=== PATIENT | female | born 1940 | race Caucasian/White ===

== ENCOUNTER 2023-06-14 07:59 | Inpatient (IN) ==
--- NOTE | 2023-06-08 11:53 | Anesthesiology Consultation ---
Date of Service June 08, 2023 Assessment & Plan Chart Review Chart Review: Acceptable Risk for Surgery and Patient NOT seen in Pre Admission Testing Consults Requested none History Surgery Operation Date: 06/14/23 07:00 Proposed Procedures p Right Breast Mastectomy, Excision Right Axillary Lymph Node with Localization (Christie Pulverizer Tender Scheduled 05/12/23) - Baldev Oreilly DO Height/Weight Height: 5 ft 1 in Weight: 49.895 kg Allergies Allergy/AdvReac Type Severity Reaction Status Date / Time aspirin Allergy Intermediate Headache Verified 06/08/23 08:07 chocolate flavor Allergy Intermediate Hives Verified 06/08/23 08:07 Medications Home Medications Medication Instructions Recorded Confirmed Last Taken atenolol 50 mg tablet 50 mg PO QAM 10/29/22 06/08/23 12/30/22 08:30 diltiazem HCl 240 mg 240 mg PO QAM 10/29/22 06/08/23 12/30/22 08:30 capsule,extended release 24 hr glipizide 5 mg tablet 5 mg PO QAM 10/29/22 06/08/23 12/29/22 08:00 simvastatin 10 mg tablet (Zocor) 10 mg PO QPM 11/09/22 06/08/23 12/29/22 17:00 ujwhecnw-avme-yzaz 8 mg-folic 400 1 tab PO QAM 11/16/22 06/08/23 12/29/22 08:00 mcg-K 50 mcg-lutein 300 mcg tablet (Centrum Silver Women) sodium chloride 1,000 mg soluble 1,000 mg PO BID 12/15/22 06/08/23 12/29/22 21:00 tablet cranberry extract 500 mg tablet 500 mg PO HS 04/02/23 06/08/23 Unknown omeprazole 20 mg capsule,delayed 20 mg PO QAM Heartburn 04/02/23 06/08/23 Unknown release metformin 500 mg tablet 500 mg PO BID 06/02/23 06/08/23 Unknown Past Medical History Medical History Pancreatic cancer dx 11/2022 Malignant neoplasm of overlapping sites of right female breast Myocardial infarction Type II LA 09/03/22 at [facility] (per cardio consult 09/04/22 "no EKG changes of ACS, mildly elevated troponin in the setting of sepsis secondary to UTI, I believe elevation of troponin is secondary to demand ischemia, type II LA"). Started on Plavix Poor historian Breast cancer, right treated with chemotherapy and radiation. Biopsy 10/16/22 CKD (chronic kidney disease) Stage III per records Thyroid nodule Hyponatremia PCP aware and monitoring- Na in low 120s Hyperlipemia Hypertension Diabetes NIDDM Past Family History Family History Mother , 66yo Stroke Hypertension Father , 80s Rupture of bowel Fall Brother COVID Diabetes Sister No problems noted. Son Diabetes Heart disease Cardiac stents; Daughter No problems noted. Daughter Diabetes Other No family history of adverse response to anesthesia Past Surgical History Surgical History H/O esophagogastroduodenoscopy With EUS and biopsy of pancreas - adenocarcinoma 12/30/20 History of ERCP Status post chemotherapy last treatment 05/21/23 Port-A-Cath in place (11/16/22) Access port placement. Dr. Randolph H/O: hysterectomy (~1989) 1989 Hx of colonoscopy 2010 Social History Smoking Status: Never smoker Do You Dip or Chew Tobacco: No Hx Alcohol Use: No Hx Substance Use: No substance use type: does not use Lab Results Anesthesia Preop Results Results Anesthesia Widget: WBC 8.52 K/ul (4.8-10.8) 05/21/23 Hgb 9.0 g/dl (12.0-16.0) L 05/21/23 Hct 27.3 % (37.0-47.0) L 05/21/23 Plt 283 K/uL (130-400) 05/21/23 Na 130 mmol/L (136-145) L 05/21/23 K 4.7 mmol/L (3.5-5.1) 05/21/23 Cl 97 mmol/L (98-107) L 05/21/23 CO2 22 mmol/L (21-32) 05/21/23 BUN 22 mg/dl (6-23) 05/21/23 Creat 1.22 mg/dl (0.6-1.2) H 05/21/23 Glucose Level 207 mg/dl (70-99(Fasting)) H 05/21/23 TSH 0.331 uIu/ml (0.300-4.500) 05/21/23 Testing Electrocardiogram Date: 09/09/22 NSR @ 77 bpm Low voltage QRS Septal infarct Echocardiogram Date: 04/12/23 LV systolic function is normal No regional wall motion abnormalities Borderline concentric LVH EF 60-65 Mild MR Compared with study of 03/09/23, no significant change
[~2023-06-14 07:59] MED LIST: ACETAMINOPHEN 1000 MG/100 ML IV IV ONE; LACTATED RINGER'S 1,000 ML IV SCH; LR 15ML/HR IV SCH; ceFAZolin 2000MG 2,000 MG/15 ML SYR IV SCH
[2023-06-14] MEDS ORDERED: ePHEDrine sulfate 50 MG/ML AMP IV PRN (09:27)
[2023-06-14] MEDS ORDERED: HYDROmorphone INJ 2 MG/ML SYR/VIAL IV PRN (09:27)
[2023-06-14] MEDS ORDERED: fentaNYL citrate PF 100 MCG/2 ML VIAL IV PRN (09:27)
[2023-06-14] MEDS ORDERED: ATROPINE SULFATE 0.1 MG/ML 10ML SYR IV PRN (09:27)
[2023-06-14] MEDS ORDERED: ONDANSETRON INJ 2 MG/ML 2 ML VIAL IV PRN ×2 (09:27→12:40)
[2023-06-14] MEDS ORDERED: LIDOCAINE 2% 2 ML VIAL/AMP(20MG/ML) INFIL ONE (09:45)
[2023-06-14] MEDS ORDERED: PROPOFOL IV EMULSION 10 MG/ML 20 ML VIAL IV ONE (09:45)
[2023-06-14] MEDS ORDERED: ROCURONIUM BROMIDE 10 MG/ML 5 ML VIAL IV ONE (09:45)
[2023-06-14] MEDS ORDERED: ONDANSETRON INJ 2 MG/ML 2 ML VIAL ONE ×2 (09:45→13:14)
[2023-06-14] MEDS ORDERED: DEXAMETHASONE SOD INJ 4 MG/ML VIAL ONE (09:45)
[2023-06-14] MEDS ORDERED: MIDAZOLAM HCL 1 MG/ML 2ML VIAL ONE (09:46)
[2023-06-14] MEDS ORDERED: fentaNYL citrate PF 100 MCG/2 ML VIAL ONE ×2 (09:46→12:48)
[2023-06-14] MEDS ORDERED: SODIUM CHLORIDE 0.9% PF INJ 10 ML VIAL ONE (11:01)
[2023-06-14] MEDS ORDERED: METHYLENE BLUE 0.5% 10 ML VIAL ONE (11:01)
[2023-06-14] MEDS ORDERED: BUPIVACAINE/EPINEPHRINE 0.5% MPF 1:200,000 30 ML VIAL ONE (11:01)
--- NOTE | 2023-06-14 11:14 | History & Physical Report ---
Date of Service June 14, 2023 Assessment & Plan (1) Breast cancer, right: Plan: Plan for a right mastectomy with targeted lymph node excision with hernan strike plate attacher localization. Consent is on the chart with appropriate signatures. History of Present Illness Primary Care Provider: SIDNEY Castillo Dorothea is a pleasant 82 y/o F currently under the care of medical oncology for management of an inflammatory right breast cancer as well as pancreatic carcinoma who presents to the office with her daughter, Nataliya, to discuss next surgical steps for her breast cancer treatment for which she is currently having neoadjuvant CTX. She really says that her last chemotherapy is planned for May 14. This is confirmed with radiation oncology notation which also i ndicates that she will begin radiation treatments on May 24 having her last treatment on June 02. She presents for right breast mastectomy with targeted lymph node excision to include a previously biopsied right axillary lymph node as well as bulky lymphadenopathy. Detailed HPI: 09/03/22: CT chest at [facility] revealed a right breast mass 10/09/22: b/l diagnostic mammogram- large 9cm mass of the right breast suspicious for malignancy. Mildly prominent right axillary lymph nodes suspicious for gissel mets 10/16/22: US guided biopsy of the right breast mass with clip placement and biopsy of the right axillary lymph node with clip placement. 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 11/26/22: PET CT-FDG avid right breast mass, the negative biopsied lymph node had mild FDG avid uptake and was indeterminate on PET. A 2.2cm FDG avid mass was noted within the pancreatic body which favored pancreatic carcinoma as opposed to pancreatic metastasis but this could not be totally excluded. Cystic nonenhancing FDG avid lesions in the pancreas and a few adjacent peripancreatic indeterminate cystic lesions with follow up exams recommended. 12/30/22: EUS-with biopsy of the pancreatic mass and aspiration of cysts. Final pathology revealed an adenocarcinoma of the lesion in the pancreatic body. Cystic lesion in the head of the pancreas confirms glandular epithelium with low grade atypia and some groups concerning for high grad atypia. GE junction biopsy negative for intestinal metaplasia and dysplasia. Allergies Allergy/AdvReac Type Severity Reaction Status Date / Time aspirin Allergy Intermediate Headache Verified 06/14/23 08:40 chocolate flavor Allergy Intermediate Hives Verified 06/14/23 08:40 Home Medications Medication Instructions Recorded Confirmed Type atenolol 50 mg tablet 50 mg PO QAM 10/29/22 06/14/23 History diltiazem HCl 240 mg 240 mg PO QAM 10/29/22 06/14/23 History capsule,extended release 24 hr glipizide 5 mg tablet 5 mg PO QAM 10/29/22 06/14/23 History simvastatin 10 mg tablet (Zocor) 10 mg PO QPM 11/09/22 06/14/23 History txbsepsk-bikd-ofxr 8 mg-folic 400 1 tab PO QAM 11/16/22 06/14/23 History mcg-K 50 mcg-lutein 300 mcg tablet (Centrum Silver Women) sodium chloride 1,000 mg soluble 1,000 mg PO BID 12/15/22 06/14/23 History tablet cranberry extract 500 mg tablet 500 mg PO HS 04/02/23 06/14/23 History omeprazole 20 mg capsule,delayed 20 mg PO QAM Heartburn 04/02/23 06/14/23 History release metformin 500 mg tablet 500 mg PO BID 06/02/23 06/14/23 History Past Med/Surg History Medical History Pancreatic cancer dx 11/2022 Malignant neoplasm of overlapping sites of right female breast Myocardial infarction Type II OK 09/03/22 at [facility] (per cardio consult 09/04/22 "no EKG changes of ACS, mildly elevated troponin in the setting of sepsis secondary to UTI, I believe elevation of troponin is secondary to demand ischemia, type II OK"). Started on Plavix Poor historian Breast cancer, right treated with chemotherapy and radiation. Biopsy 10/16/22 CKD (chronic kidney disease) Stage III per records Thyroid nodule Hyponatremia PCP aware and monitoring- Na in low 120s Hyperlipemia Hypertension Diabetes NIDDM Surgical History H/O esophagogastroduodenoscopy With EUS and biopsy of pancreas - adenocarcinoma 12/30/20 History of ERCP Status post chemotherapy last treatment 05/21/23 Port-A-Cath in place (11/16/22) Access port placement. Dr. Randolph H/O: hysterectomy (~1989) 1989 Hx of colonoscopy 2010 Family History Mother , 66yo Stroke Hypertension Father , 80s Rupture of bowel Fall Brother COVID Diabetes Sister No problems noted. Son Diabetes Heart disease Cardiac stents; Daughter No problems noted. Daughter Diabetes Other No family history of adverse response to anesthesia Social History (Updated 04/02/23 @ 08:40 by Mariela Landon RN) Smoking Status: Never smoker Second Hand Exposure: No; Do You Dip or Chew Tobacco: No; Tobacco Cessation Education Requested by Patient: No Hx Alcohol Use: No Hx Substance Use: No Preferred Language: Yakut Communication Ability: Effective Visual Impairment: No Limitations Hearing Ability: Hard of Hearing Junior Accountant Required: No Beliefs That Will Affect Care: None marital status: Current Living Situation: Spouse current occupational status: retired How many Children do You have: 3 Other Information That Helps Us Care for You: No Diet: regular caffeine: Yes (2 cups/day) during the past year weight has: decreased > 10 lbs Assistive Devices: Walker Review of Systems Constitutional: no fever, no chills, no sweats and no body aches Respiratory: no cough, no dyspnea, no hemoptysis and no pain on inspiration Cardiovascular: no chest pain, no palpitations, no lightheadedness and no syncope Gastrointestinal: no abdominal pain, no heartburn, no nausea and no vomiting Physical Exam Constitutional: + thin; not ill appearing, not in distre ss and not diaphoretic Respiratory: normal respiratory effort; no respiratory distress, no labored breathing and does not use accessory muscles Cardiovascular: Rate/Rhythm: regular rate; not tachycardic Extremities: + edema; no calf tenderness Chest (Breasts): Additional Comments: No changes breast exam Results & Data Results & Data Vital Signs (Past 12 Hours) Vital Signs Temp Pulse Resp BP Pulse Ox O2 Del Method 06/14/23 08:44 36.4 C L 67 18 169/66 H 97 Room Air PG Care Time/CCT Total # of Minutes Spent Total Time Spent with Patient: Total time spent is greater than 50% in coordination of care (as documented) at patient's floor/unit and/or counseling patient: Coding Level of Care Code None Diagnoses Breast cancer, right C50.911
--- NOTE | 2023-06-14 11:20 | History & Physical Bridge Note ---
Date of Service June 14, 2023 History & Physical Bridge Note I have examined the patient, reviewed the History & Physical and in the interval since the performance of the History & Physical I have noted the following changes of clinical significance: no changes noted. Consent reviewed. Right mastectomy with excision of lymph node with hernan player services representative localization.
[2023-06-14] MEDS ORDERED: ACETAMINOPHEN 325 MG TAB PO PRN (12:40)
[2023-06-14] MEDS ORDERED: MoRPHine SULFATE 2 MG/ML CARP IV PRN (12:40)
[2023-06-14] MEDS ORDERED: oxyCODONE/ACETAMINOPHEN 5mg/325mg TAB PO PRN ×2 (12:40)
[2023-06-14] MEDS ORDERED: MoRPHine SULFATE 4 MG/ML 1 ML CARP\\VIAL IV PRN (12:40)
[2023-06-14] MEDS ORDERED: SODIUM CHLORIDE 0.9% 1,000 ML IV SCH (12:45)
[2023-06-14] MEDS ORDERED: PHENYLEPHRINE HCL 10 MG/ML VIAL ONE (14:13)
--- NOTE | 2023-06-14 14:22 | Operative Report ---
PG Post Operative Report Pre & Post Diagnosis Operation Date: 06/14/23 09:50 Pre-Op Diagnosis: Right Breast Cancer Post-Op Diagnosis: Right Breast Cancer I identified the patient and participated in the time-out.: Yes Procedure Operation Date: 06/14/23 09:50 Actual Procedures p Right Breast Mastectomy, Excision Right Axillary Lymph Node with Localization use of hernan admitting office escort(Right) - Baldev Oreilly DO Surgeon Baldev Oreilly DO Public Health Informatician DR[facility] Aleman Estimated Blood Loss 20 Findings See Below No bulky axillary adenopathy identified for additional lymph node excision. Specimens Right breast Drains 10 Fr SUGEY Anesthesia Type General Indications Right breast cancer Description of Procedure The patient is well back to the operating room placed on the operating room table in supine position. She was connected to cardiac and oxygen monitoring. SCDs were applied to bilateral lower extremities. The patient was administered supplemental oxygen and is secured airway was established. The right breast and axilla were prepped and draped in typical sterile fashion and a timeout was conducted. Borders of the right breast were marked. The savvy admitting office escort was used to identify the savvy admitting office escort reflector at the right axilla. A sterile marking pen was used to tyson a line for planned mastectomy excision was drawn in an ellipse around the right breast. Local anesthetic was injected into the skin and subcutaneous tissues. A 15 blade was used to make a full- thickness incision at the premarked line. Skin flaps were elevated in all directions to the premarked landmarks. The mammary and lobular tissue was dissected posteriorly to the chest wall at the level of the muscle. The savvy admitting office escort probe was used to excise the lymph node that was biopsied prior to [facility]. This was placed in a labeled container sent to pathology for further analysis. The neurovascular bundle was controlled using 3-0 silk ties at the axillary tail. The breast was elevated away from the serratus and pectoralis muscles using diathermy. Once removed, the axillary tail was marked with a 3-0 silk stitch. The specimen was then sent to pathology for further analysis. The wound was copiously irrigated and dried. Hemostasis was achieved with cautery and or silk ties. A 10 [place] SUGEY drain was inserted into the mastectomy site. The skin was reapproximated with 3-0 Vicryl suture and Dermabond was used to seal the skin edges. The patient tolerated procedure well. She was awakened from anesthesia, the secure airway was removed and she was transferred to recovery in stable condition. I attest to the content of the Intraoperative Record and any orders documented therein. Any exceptions are noted below.
--- NOTE | 2023-06-14 15:47 | Anesthesiology Progress Note ---
Date of Service June 14, 2023 Anesthesia Post Procedure Vital Signs Vital Signs: Temp Pulse Pulse Resp BP BP Pulse Ox 06/14/23 15:30 68 12 149/93 H 93 06/14/23 15:15 69 12 131/61 93 06/14/23 15:00 36.5 C 61 12 147/93 H 93 06/14/23 14:50 64 12 137/55 L 93 06/14/23 14:40 67 12 138/56 L 93 06/14/23 14:30 64 18 136/65 93 06/14/23 14:20 63 17 142/54 H 94 06/14/23 14:10 64 14 132/84 97 06/14/23 14:03 36.3 C L 66 10 L 132/55 L 97 06/14/23 08:44 36.4 C L 67 18 169/66 H 97 O2 Del Method O2 Flow Rate 06/14/23 15:30 Room Air 06/14/23 15:15 Room Air 06/14/23 15:00 Room Air 06/14/23 14:50 Room Air 06/14/23 14:40 Room Air 06/14/23 14:30 Room Air 06/14/23 14:20 Room Air 06/14/23 14:10 Oxymask 6 06/14/23 14:03 Oxymask 6 06/14/23 08:44 Room Air Transfer of Care Handoff Completed per policy Notes Mental Status: alert / awake / arousable and participated in evaluation Patient Amnestic to Procedure: Yes Nausea / Vomiting: adequately controlled Pain: adequately controlled Airway Patency, RR, SpO2: stable & adequate BP & HR: stable & adequate Hydration State: stable & adequate Anesthetic Complications: no major complications apparent and Pt Satisfied with anesthetic care
[2023-06-14] MEDS ORDERED: PHARMACY GLYCEMIC MGMT CONSULT PRN (18:10)
[2023-06-14] MEDS ORDERED: GLUCOSE 10 TAB/TUBE PO PRN (18:10)
[2023-06-14] MEDS ORDERED: DEXTROSE 50% 50 ML SYRINGE IV PRN (18:10)
[2023-06-14] MEDS ORDERED: GLUCAGON FOR INJ 1 MG VIAL SQ PRN (18:10)
[2023-06-14] MEDS ORDERED: CARBOHYDRATES FOR HYPOGLYCEMIA PO PRN (18:10)
[2023-06-14] MEDS ORDERED: GLUCOSE 40% GEL 15 GM TUBE PO PRN (18:10)
--- NOTE | 2023-06-14 20:50 | Hospitalist Consultation ---
Date of Consultation June 14, 2023 Assessment & Plan (1) Malignant neoplasm of overlapping sites of right female breast: (2) Diabetes: (3) Hypertension: (4) Hyperlipemia: (5) CKD (chronic kidney disease): Plan Pt is a 82 yo female s/p mastectomy with a pMHx significant for HTN, DMT2 non- insulin dependent, HLD, CKD, GERD, and breast cancer. Consulted for hyperglycemia. DMT2, noninsulin-dependent - home meds held for surgery; jaudriance, metformin, glipizide, resume on D/C - BSG tonight >500, K+ 5.7 - will do insulin drip and started IVF LR at 80 mL/hr Hyponatremia, chronic - Na 124, corrected 134 - chronic low 130s, continue to monitor HTN - continue atenolol - continue diltiazem CKD, Stage 3a - Cr baseline 1.0, now 1.38 - as this increase is >0.3 above suspected baseline, will do morning BMP and if continuing to rise, likely EVA secondary to surgery/prerenal, continue fluids HLD - continue simvastatin GERD - home omeprazole held, on IV pantoprazole Code status: Full Supervising Physician Co-Signing Physician Notes Patient seen and examined, chart reviewed, I agree with the assessment and plan per Dr. Heath's note above. In brief, patient is an 82-year-old female with history of diabetes (on metformin and glipizide at home with adequate control per report), breast cancer status post right mastectomy with excision of right axillary lymph node performed by Dr. Ortiz today 06/14/2023. The surgery was well-tolerated. However, patient with significant postoperative hyperglycemia with blood glucose 523, 560. We have been asked to assist with management of patient's hyperglycemia. On physical exam patient is resting comfortably, no acute distress Status post right-sided mastectomy with axillary dissection. Dressing in place, clean/dry/intact. SUGEY drain in place with approximately 40 cc of serosanguineous drainage HEENTmoist mucous membranes, neck supple Heart+ S1, S2, regular, no murmur/rub/gallops LungsCTA anteriorly with no rales/rhonchi/wheezes Abdomen/positive bowel sounds, soft, nontender, nondistended Extremitieswarm, well-perfused Labs and images reviewed. Potassium is mildly elevated at 5.7 mild elevation of BUN and creatinine at 25 and 1.38, respectively. No anion gap Assessment/[id number]-[id number]-xib female with history of diabetes on oral agents, status post right-sided mastectomy performed today with postoperative hyperglycemia. Patient did receive a dose of steroids prior to surgery. She also ate. She reports that normally her blood sugars are fairly well controlled, less than 200. She does not recall her most recent hemoglobin A1c value. Insulin drip with q. hourly fingersticks. Check hemoglobin A1c Hyponatremia with sodium = 120 which corrects to near normal for degree of hyperglycemia -Would continue gentle IV fluids per primary team for management of patient's mildly elevated BUN and creatinine Repeat labs ordered for the morning Remainder of plan as above History of Present Illness Reason for Consultation: Hyperglycemia Requesting Physician: Alfred Everett PA-C Attending Physician: Baldev Oreilly DO History of Present Illness Pt is a 82 yo female s/p mastectomy with a pMHx significant for HTN, DMT2 non- insulin dependent, HLD, CKD, and breast cancer. Pt states she is feeling fine but that she has never had a blood sugar in the 500s before, which she attributes to not having taken any of her home medications today due to the surgery. She states she has not been on insulin at home and usually takes Jardiance, glipizide, and metformin. She states she is currently feeling well, had a large meal for dinner without any nausea or vomiting after. No belly pain. No questions or complaints at this time. Allergies Allergy/AdvReac Type Severity Reaction Status Date / Time aspirin Allergy Intermediate Headache Verified 06/14/23 08:40 chocolate flavor Allergy Intermediate Hives Verified 06/14/23 08:40 Home Medications Medication Instructions Recorded Confirmed Type atenolol 50 mg tablet 50 mg PO QAM 10/29/22 06/14/23 History diltiazem HCl 240 mg 240 mg PO QAM 10/29/22 06/14/23 History capsule,extended release 24 hr glipizide 5 mg tablet 5 mg PO QAM 10/29/22 06/14/23 History simvastatin 10 mg tablet (Zocor) 10 mg PO QPM 11/09/22 06/14/23 History cchokocu-jwvv-jndw 8 mg-folic 400 1 tab PO QAM 11/16/22 06/14/23 History mcg-K 50 mcg-lutein 300 mcg tablet (Centrum [place] Women) sodium chloride 1,000 mg soluble 1,000 mg PO BID 12/15/22 06/14/23 History tablet cranberry extract 500 mg tablet 500 mg PO HS 04/02/23 06/14/23 History omeprazole 20 mg capsule,delayed 20 mg PO QAM Heartburn 04/02/23 06/14/23 History release metformin 500 mg tablet 500 mg PO BID 06/02/23 06/14/23 History oxycodone 5 mg tablet 5 - 10 mg (1 - 2 x 5 mg) PO 06/14/23 Rx .[id number] PRN pain #15 tabs Patient History Medical History Pancreatic cancer dx 11/2022 Malignant neoplasm of overlapping sites of right female breast Myocardial infarction Type II ID 09/03/22 at [facility] (per cardio consult 09/04/22 "no EKG changes of ACS, mildly elevated troponin in the setting of sepsis secondary to UTI, I believe elevation of troponin is secondary to demand ischemia, type II ID"). Started on Plavix Poor historian Breast cancer, right treated with chemotherapy and radiation. Biopsy 10/16/22 CKD (chronic kidney disease) Stage III per records Thyroid nodule Hyponatremia PCP aware and monitoring- Na in low 120s Hyperlipemia Hypertension Diabetes NIDDM Surgical History H/O esophagogastroduodenoscopy With EUS and biopsy of pancreas - adenocarcinoma 12/30/20 History of ERCP Status post chemotherapy last treatment 05/21/23 Port-A-Cath in place (11/16/22) Access port placement. Dr. Randolph H/O: hysterectomy (~1989) 1989 Hx of colonoscopy 2010 Family History Mother , 66yo Stroke Hypertension Father , 80s Rupture of bowel Fall Brother COVID Diabetes Sister No problems noted. Son Diabetes Heart disease Cardiac stents; Daughter No problems noted. Daughter Diabetes Other No family history of adverse response to anesthesia Social History (Updated 04/02/23 @ 08:40 by Mariela Landon RN) Smoking Status: Never smoker Second Hand Exposure: No; Do You Dip or Chew Tobacco: No; Tobacco Cessation Education Requested by Patient: No Hx Alcohol Use: No Hx Substance Use: No Preferred Language: Indian Communication Ability: Effective Visual Impairment: No Limitations Hearing Ability: Hard of Hearing Roll Filler Required: No Beliefs That Will Affect Care: None marital status: Current Living Situation: Spouse current occupational status: retired How many Children do You have: 3 Other Information That Helps Us Care for You: No Diet: regular caffeine: Yes (2 cups/day) during the past year weight has: decreased > 10 lbs Assistive Devices: Walker Review of Systems Review of Systems: Per HPI. Physical Exam Physical Exam: General:Alert and oriented, no acute distress, HEENT: Normocephalic, moist oral mucosa, Cardio: Regular rate and rhythm, Resp:Lungs clear to auscultation b/l, no wheezes or rhonchi, GI: Soft and nontender, nondistended, bowel sounds hypoactive Skin: Warm, dry, pale Psych: Mood-affect congruence. Results & Data Results & Data Vital Signs (Past 12 Hours) Vital Signs Temp Pulse Pulse Resp BP Pulse Ox O2 Del Method 06/14/23 19:22 36.6 C 73 16 114/51 L 94 Room Air 06/14/23 17:00 36 C L 70 14 131/64 95 Room Air 06/14/23 16:00 73 12 125/71 94 Room Air 06/14/23 15:45 72 12 145/62 H 94 Room Air 06/14/23 15:30 68 12 149/93 H 93 Room Air 06/14/23 15:15 69 12 131/61 93 Room Air 06/14/23 15:00 36.5 C 61 12 147/93 H 93 Room Air 06/14/23 14:50 64 12 137/55 L 93 Room Air 06/14/23 14:40 67 12 138/56 L 93 Room Air 06/14/23 14:30 64 18 136/65 93 Room Air 06/14/23 14:20 63 17 142/54 H 94 Room Air 06/14/23 14:10 64 14 132/84 97 Oxymask 06/14/23 14:03 36.3 C L 66 10 L 132/55 L 97 Oxymask O2 Flow Rate 06/14/23 19:22 06/14/23 17:00 06/14/23 16:00 06/14/23 15:45 06/14/23 15:30 06/14/23 15:15 06/14/23 15:00 06/14/23 14:50 06/14/23 14:40 06/14/23 14:30 06/14/23 14:20 06/14/23 14:10 6 06/14/23 14:03 6 Resident Activity Tracking Resident Involvement: Resident Care Provided Care Provided: Adult Hospital Medicine
[2023-06-14] MEDS ORDERED: INSULIN ASPART PER UNIT CHARGE SC SCH (21:00)
[2023-06-14] MEDS ORDERED: SIMVASTATIN 10 MG TAB PO SCH (21:00)
[2023-06-14 21:26] LABS: BUN Creatinine Ratio 18.1 (10-20); Calcium 8.9 mg/dl (8.6-10.3); Creatinine Clr Calc Pharmacy 23.4 ml/min; Est GFR (African American) 41.7 ml/min; Potassium 5.7 mmol/L (3.5-5.1)
[2023-06-14] MEDS ORDERED: INSULIN PROTOCOL GOAL RANGE ONE (21:29)
[2023-06-14] MEDS ORDERED: MODERATE STRESS LEVEL ONE (21:29)
[2023-06-14] MEDS ORDERED: STAT IV Infusion **Titration per Protocol STA (21:29)
[2023-06-14] MEDS: SODIUM CHLORIDE 1 GM TABLET PO SCH (21:36)
[2023-06-14] MEDS ORDERED: INSULIN REGULAR 250 UNITS in SODIUM CHLORIDE 0.9% 247.5 ML IV SCH (21:45)
[2023-06-14] MEDS ORDERED: INSULIN HUMAN REGULAR IV BOLUS 1 UNITS in SYRINGE 0 ML IV ONE (21:45)
[2023-06-14] MEDS: LACTATED RINGER'S 1,000 ML IV SCH (22:30)
--- NOTE | 2023-06-15 02:33 | Billing Data ---
Date of Service June 14, 2023 Coding Level of Care Code 94689 INT INP/OBS CARE
[2023-06-15] MEDS: INSULIN ASPART PER UNIT CHARGE SC SCH ×2 (08:47→12:10)
[2023-06-15] MEDS ORDERED: PANTOprazole 40 MG TAB PO SCH (09:00)
[2023-06-15] MEDS ORDERED: ATENOLOL 50 MG TABLET PO SCH (09:00)
[2023-06-15] MEDS ORDERED: LANTUS PER UNIT CHARGE SC ONE ×3 (09:00→12:00)
[2023-06-15] MEDS ORDERED: dilTIAZem HCL 240 MG CAPCR PO SCH (09:00)
[2023-06-15] MEDS: SODIUM CHLORIDE 1 GM TABLET PO SCH (09:06)
[2023-06-15 09:20] LABS: Basophils # (auto) 0.01 K/uL (0.00-0.20); Basophils % (auto) 0.1 %; Hematocrit (blood only) 22.7 % (37.0-47.0); Hemoglobin 7.8 g/dl (12.0-16.0); Immature Granulocytes # (auto) 0.14 K/uL (0.01-0.20); Immature Granulocytes % (auto) 1.3 %; Lymphocytes # (auto) 1.06 K/uL (1.20-3.40); Lymphocytes % (auto) 9.6 %; Mean Corpuscular Hemoglobin 32.2 pg (25.0-34.0); Mean Corpuscular Hgb Conc 34.4 g/dL (32.0-36.0); Mean Corpuscular Volume 93.8 fL (80.0-100.0); Mean Platelet Volume 9.1 fL (9.4-12.4); Monocytes # (auto) 1.55 K/uL (0.11-0.59); Monocytes % (auto) 14.1 %; Neutrophils # (auto) 8.26 K/uL (1.40-6.50); Neutrophils % (auto) 74.9 %; Platelet Count 225 K/uL (130-400); RDW Coefficient of Variation 15.4 % (11.5-14.5); RDW Standard Deviation 52.7 fL (36.4-46.3); Red Blood Count 2.42 M/uL (4.20-5.40); White Blood Count 11.02 K/ul (4.8-10.8)
[2023-06-15 09:37] LABS: BUN Creatinine Ratio 18.6 (10-20); Calcium 9.3 mg/dl (8.6-10.3); Creatinine Clr Calc Pharmacy 27.3 ml/min; Est GFR (African American) 50.4 ml/min; Est GFR (Non-African American) 43.5 ml/min; Estimated Average Glucose 171 mg/dl; Hemoglobin A1C 7.6 % (4.5-5.6); Potassium 4.5 mmol/L (3.5-5.1)
[2023-06-15 10:01] LABS: Polychromasia 1+
--- NOTE | 2023-06-15 10:39 | Hospitalist Progress Note ---
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 Consulted for hyperglycemia. DMT2, noninsulin-dependent -Post-operative hyperglycemia with normal anion gap. -BG now at 215; K+ normalized to 4.5 -HgbA1c from today was 7.6% -Resume home DM meds: Jardiance 10 mg qD, Glipizide 5 mg qAM, and Metformin 500 mg BID on D/C -Outpatient f/u for DM management Hyponatremia, chronic -Chronic low 130s. Most recent BMP shows Na+ 130 HTN -Continue Atenolol 50 mg daily -Continue Diltiazem 240 mg wallace CKD, Stage 3a -Cr baseline 1.0, Cr was elevated yesterday at 1.38, but most recent BMP showed a return to baseline Cr 1.18 -Likely EVA secondary to surgery/prerenal -Advised hydration HLD -Continue Simvastatin 10 mg PO qPM GERD -Resume home Omeprazole 20 mg PO qAM on D/C Code status: Full Admission and Anticipated Discharge Date Admission Date: June 14, 2023 Ana Piedra is a 82 year-old female with a past medical history of Infiltrative ductal carcinoma of the R breast s/p mastectomy, Pancreatic adenocarcinoma s/p chemotherapy, Hypertension, DM2 (non-insulin dependent), HLD, and CKD admitted for management of post-operative hyperglycemia. Patient had R breast mastectomy completed 06/14/2023 afternoon and found to have post-op POC BG level of 523 (POC). At the time, she stated that she was feeling fine and that she has never had a blood sugar level that high before. She attributed this elevated BG level to not having taken any of her home DM medications due to her procedure. In terms of her diabetes regimen, she is on Jardiance 10 mg qD, Glipizide 5 mg qAM, and Metformin 500 mg BID. She is not on insulin at home. She reports that her blood sugars at home have been well-managed. She is currently feeling well. No questions or complaints at this time. She denies any fever, chills, chest pain, vision changes, SOB, LOC, abdominal pain, nausea, vomiting, or increased thirst. She notes that bowel movements have been normal and has not had any urinary symptoms. She lives in [place], [place] with her and cat. Her daughter who lives in [place] visits her frequently at home. Review of Systems Review of Systems: Negative except those stated in HPI. Physical Exam Physical Exam: General: Well appearing and not in any acute distress. Respiratory: Normal respiratory effort. Lungs clear to auscultation bilaterally Cardiovascular: Regular rate and rhythm. No murmurs rubs or gallops. Chest (breast): POD 1 R mastectomy, covered with dermabond, SUGEY drain serosanguineous fluid Results & Data Results & Data Vital Signs (Past 12 Hours) Vital Signs Temp Pulse Resp BP Pulse Ox O2 Del Method 06/15/23 07:57 36.5 C 66 16 162/65 H 93 Room Air 06/15/23 03:23 36.6 C 66 18 156/64 H 96 Room Air 06/14/23 23:27 36.6 C 66 16 137/69 95 Room Air
--- NOTE | 2023-06-15 11:28 | Surgery Progress Note ---
Date of Service June 15, 2023 Assessment & Plan (1) S/P right mastectomy: Plan: POD 1 R mastectomy covered with dermabond SUGEY drain serosanguineous fluid VSS tolerating diet Hospitalist consulted overnight for hyperglycemia , appreciate recommendations Pt on insulin drip WBC 11 Patient eager to go home Admission and Anticipated Discharge Date Admission Date: June 14, 2023 Supervising Physician Co-Signing Physician Notes Patient will be discharged today to the care of her daughter. She should follow up with me in the office in 2 weeks or sooner if needed Keep the surgical site dry, no showers, bathing, swimming or soaking in water. Subjective Patient sitting up in bed , daughter at side offers no complaints tolerating diet denies pain Review of Systems Constitutional: no fever and no chills Cardiovascular: no chest pain Gastrointestinal: no abdominal pain, no nausea and no vomiting Genitourinary: external catheter for urine leakage Physical Exam Physical Exam: alert oriented Constitutional: cooperative and comfortable; no acute distress Respiratory: normal respiratory effort and able to speak in complete sentences; no respiratory distress Cardiovascular: Rate/Rhythm: regular rate Chest (Breasts): Additional Comments: POD 1 R mastectomy , covered with dermabond, SUGEY drain serosanguineous fluid Results & Data Vital Signs (Past 12 Hours) Vital Signs Temp Pulse Resp BP Pulse Ox O2 Del Method 06/15/23 07:57 97.7 F 66 16 162/65 H 93 Room Air 06/15/23 03:23 97.9 F 66 18 156/64 H 96 Room Air 06/14/23 23:27 97.9 F 66 16 137/69 95 Room Air PG Care Time/CCT Total # of Minutes Spent Total Time Spent with Patient: Total time spent is greater than 50% in coordination of care (as documented) at patient's floor/unit and/or counseling patient: Coding Level of Care Code 89224 Post Operative Follow-Up Diagnoses S/P right mastectomy Z90.11
[2023-06-15] MEDS: LACTATED RINGER'S 1,000 ML IV SCH (12:06)
[2023-06-15] MEDS ORDERED: INSULIN ASPART PER UNIT CHARGE SC SCH (12:30)
--- NOTE | 2023-06-15 13:34 | Discharge Summary ---
Date of Service June 15, 2023 Admission HPI Per Admitting Provider Dorothea is a pleasant 82 y/o F currently under the care of medical oncology for management of an inflammatory right breast cancer as well as pancreatic carcinoma who presented to the [facility] on June 14 for her planned right breast mastectomy. Dorothea successfully completed the surgery and was kept overnight for observation secondary to her age so that she could be hemodynamically monitored and her full anesthesia recovery could be closely observed. The details of her procedure can be found in a separately dictated operative report. Hospitalist consulted overnight for hyperglycemia , appreciate recommendations Dorothea had no hemodynamically concerning issues overnight and by the a.m. she was ready to resume her usual diet. She tolerated this well. She had been ambulating without lightheadedness or dizziness. Her mental status is intact and at baseline. A.m. labs do reveal worsened anemia postoperatively with H/H of 7.8/22 from 04/28. Principal Diagnosis Right breast cancer. Status post right breast mastectomy on June 14 2023. Discharge Exam Constitutional not in distress and not diaphoretic Afebrile Respiratory normal respiratory effort; no respiratory distress, no labored breathing and does not use accessory muscles Cardiovascular Rate/Rhythm: regular rate; not tachycardic Chest (Breasts) Additional Comments: Incision site is intact. There is no swelling or erythema SUGEY drainage has turned to serosanguineous and decreasing. 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 Will discharge home today, 06/15/2023 Discharge instructions will be provided She will follow-up with me in the office in 2 weeks or sooner if needed Follow-up with her PCP to monitor for full recovery of her H/H. Total Time Total Time Spent Total Time Spent (In Minutes): 30 minutes Discharge Plan Discharge Items Patient Disposition: Home - Self-Care Reason For Visit: Right Breast Cancer Discharge Diagnosis: right breast mastectomy and sentinel lymph node biopsy Activity: Per Instructions section Activity Comment: Measure SUGEY drain output daily Lifting: No more than 10 pounds Lifting Comment: Do not lift more than 20 pounds with your right hand/arm Bathing Comment: keep incisions dry until your follow up appointment Exercise/Sports: Wait until after follow-up appointment Call non-emergency contact if: you have any medication questions, your symptoms worsen, your pain is worsening, you have a fever, your temperature is above 101.5, your wound has increased redness, your wound has increased drainage and your wound pain has increased Follow-up/Referrals: Baldev Oreilly DO [Physician] - (Please call to schedule follow up in clinic within 2 weeks ) Vannessa Pacheco CRNP [Primary Care Provider] - Diet: Carb Consistent or DM2 Addtl Attending Provider Instructions: You will be discharged to home with a surgical drain in place. Care for the drain as you have been instructed prior to discharge from the hospital. Keep to bulb suction. may empty 2-3x/daily and record output. You may purchase Tylenol and/or Ibuprofen over the counter if needed for additional pain control over the next few days. Take per manufacturers instructions You may continue to wear a supportive/compressive bra until your follow up Keep incisions dry until your follow up. may take a sponge bath otherwise Pending Studies at Discharge: Yes Studies:: surgical pathology Stand-Alone Forms: My [facility] Medications and DC Order Prescriptions: New oxycodone 5 mg tablet 5 - 10 mg PO .[id number] MDD no more than 6 tabs in 24hours PRN (Reason: pain) Qty: 15 0RF Continued omeprazole 20 mg capsule,delayed release(DR/EC) 20 mg PO QAM cranberry extract 500 mg tablet 500 mg PO HS Rx Instructions: administer with meals diltiazem HCl 240 mg capsule,extended release 24hr 240 mg PO QAM glipizide 5 mg tablet 5 mg PO QAM atenolol 50 mg tablet 50 mg PO QAM metformin 500 mg tablet 500 mg PO BID simvastatin [Zocor] 10 mg Tablet 10 mg PO QPM sodium chloride 1,000 mg tablet,soluble 1,000 mg PO BID Centrum Silver Women 8 mg iron-400 mcg-300 mcg Tablet 1 tab PO QAM Discharge Orders: Discharge Order (Routine); Ordered 06/15/23 Ordered By: Baldev Jordan/Other Patient Handouts: Managing Type 2 Diabetes Admission Data Admit Date/Time: 06/14/23 14:18 Attending Provider: Baldev Oreilly Admit Provider: Baldev Oreilly Primary Care Provider: Vannessa Pacheco Other Providers: Mercedes Nobles; Doreen Rankin Coding Level of Care Code 09963 IN/OBS DISCH 30 MIN/LESS Diagnoses S/P right mastectomy Z90.11
== END 2023-06-15 15:14 | disposition home or self-care (01) | DRG 580 ==
LOC: ASU 07:59 → INTOOBSV 14:18 → 3N 14:18 → OBSVTOIN 14:18